=== PATIENT | female | born 2000 | race Caucasian/White ===

== ENCOUNTER 2019-05-24 00:47 | Emergency (ER) | payer MEDICAID ==
[~2019-05-24] VITALS: Ht 175.3 cm; Wt 96.2 kg
[2019-05-24 00:57] VITALS: Ht 175.3 cm; Wt 96.2 kg
[2019-05-24 04:27] VITALS: BP 116/63
== END 2019-05-24 04:27 | disposition home or self-care (01) ==
LOC: ED 00:47
DX: B34.9 Viral infection, unspecified (principal); R51 Headache; K21.9 Gastro-esophageal reflux disease without esophagitis; Z88.2 Allergy status to sulfonamides; Z88.7 Allergy status to serum and vaccine; Z88.1 Allergy status to other antibiotic agents
CPT/HCPCS: 87804; J1885; Q0162